=== PATIENT | female | born 1960 | race Caucasian/White ===

== ENCOUNTER 2019-11-15 08:23 | Outpatient (CLI) | payer OTHER, SELFPAY ==
[2019-11-15 12:55] LABS: Anion Gap 7.6 mmol/L (3-11); BUN 12 mg/dL (7-18); CO2 28.4 mmol/L (21.0-32.0); CREATININE 0.67 mg/dL (0.55-1.02); Calcium 9.5 mg/dL (8.5-10.1); Calculated LDL 178 mg/dL; Chloride 106 mmol/L (98-107); Cholesterol 272 mg/dL (<200); Glucose 87 mg/dL (74-106); HDL Cholesterol 79 mg/dL (40-60); Potassium 5.5 mmol/L (3.5-5.1); Sodium 142 mmol/L (136-145); Triglyceride 76 mg/dL (<150)
== END 2019-11-15 08:43 ==
PROVIDERS: PCP Family Medicine; Visit Provider Family Medicine
DX: Z00.00 Encounter for general adult medical examination without abnormal findings (principal); Z13.220 Encounter for screening for lipoid disorders; Z13.228 Encounter for screening for other metabolic disorders
CPT/HCPCS: 36415; 80048; 80061

== ENCOUNTER 2020-10-11 03:26 | Outpatient (CLI) | payer OTHER, SELFPAY ==
--- NOTE | 2020-10-11 08:00 | DI.MAMMO_ITS ---
EXAM: MG MAMMO SCREENING CLINICAL HISTORY: screening,z12,39. TECHNIQUE: Bilateral full field digital CC and MLO mammographic images were obtained with 3D tomosyn thesis and utilizing computer aided detection (CAD). COMPARISON: Prior mammograms dating back to 2015, the most recent being January 2018. FINDINGS: There are no new dominant masses nor malignant appearing microcalcification groups. There is no new architectural distortion nor skin thickening-retraction. IMPRESSION: No radiographic evidence of malignancy. BI-RADS Category 1 - Negative Breast Density - Category B - Scattered areas of fibroglandular density Breast density Category C or D implies that the patient has dense breast tissue. Dense breast tissue can make it harder to find cancer on a mammogram. Dense breast tissue is also associated with an incr eased risk of breast cancer. This information about the result of the mammogram report was provided to the patient to raise their awareness. Use this report when you speak with the patient about their risks for breast cancer, which includes their family history. At that time, you may recommend additional screening tests (Ultrasoun d or MRI) as these tests may add significant information. A negative radiographic report should not delay biopsy if a dominant or clinically suspicious mass is present. Up to ten percent of cancers are not identified on mammography. A negative report may reinforce clinical impression. Adenosis and dense breasts may obscure an underlying neoplasm. False positive reports average 6 to 10%. Patient will receive a letter notifying them of these results.
== END 2020-10-11 03:46 ==
PROVIDERS: PCP Nurse Practitioner Family; Visit Provider Nurse Practitioner Family
DX: Z12.31 Encounter for screening mammogram for malignant neoplasm of breast (principal)
CPT/HCPCS: 77063; 77067

== ENCOUNTER 2020-10-28 14:20 | Emergency (ER) | payer OTHER, SELFPAY ==
[2020-10-28] VITALS (11 sets, daily range): BP systolic 118–147; BP diastolic 54–68; PULSE 62–74; RESP 13–22; TEMP 36.7; O2SAT 98–100
--- NOTE | 2020-10-28 14:15 | RT.EKG_ITS ---
APPROVED REPORT Exam: Resting ECG Patient Location: E HR:67 bpm ECG Measurements Heart Rate 67 AXIS IL 183 P -4 QRSd 82 QRS 38 QT 392 T -6 QTc 416 Conclusion Sinus rhythm POOR quality, repeated
--- NOTE | 2020-10-28 14:30 | RT.EKG_ITS ---
APPROVED REPORT Exam: Resting ECG Patient Location: E HR:69 bpm ECG Measurements Heart Rate 69 AXIS LA 185 P -12 QRSd 79 QRS 40 QT 385 T 1 QTc 414 Conclusion Sinus rhythm Atrial premature complex...SV complex w/ short R-R interval
--- NOTE | 2020-10-28 14:45 | DI.RAD_ITS ---
EXAM: XR CHEST 2V PA LATERAL CLINICAL HISTORY: transient palpitations. TECHNIQUE: 2D digital imaging was performed. COMPARISON: No exams were available for comparison FINDINGS: Heart size is normal. The mediastinum is not widened. Lungs are clear. No infiltrates nor pleural effusions. IMPRESSION: No acute pulmonary findings. DATA REPOSITORY: RADIATION DOSE DELIVERED:
--- NOTE | 2020-10-28 14:55 | W.ED.GENAD ---
Discharge Plan Disposition Patient Disposition: HOME Condition: Improving Discharge Details Clinical Impression: Heart palpitations Primary Care Provider: Elizabeth Santacruz ED Provider: Fortino Narayan Home Meds and New Rx's Prescriptions: Continued acetaminophen [Tylenol] 325 MG tablet 650 mg PO BID PRNRF: 0 folic acid 20 MG capsule 1 cap PO DAILY RF: 0 cyanocobalamin (vitamin B-12) [Vitamin B-12] 1,000 MCG tablet 1 tab PO DAILY RF: 0 calcium carbonate-vitamin D3 [Caltrate with Vitamin D3] 1 EACH tablet 1 tab PO DAILY RF: 0 omega-3 fatty acids-fish oil 1 EACH capsule 1 cap PO DAILY Qty: 90 RF: 0 Lactobacillus acidophilus 1 EACH tablet 2 tab PO DAILY RF: 0 Discharge Instructions Instructions: Heart Palpitations (ED) Additional Instructions: Please return the heart monitor to respiratory therapy as discussed with them. Return to the ER if you develop chest pain, difficulty breathing, or any other acute concerns. Please stay liberally hydrated with small, frequent sips of fluids. Minimize caffeine use and no energy drink use. Medical Decision Making This is a 60-year-old female who presents from home with the abrupt onset, at rest, of palpitations that she describes as a pounding in her chest lasting approximately 15 minutes. She felt lightheaded but did not have a syncopal event. Mild right anterior chest discomfort that resolved with the resolution of her tachydysrhythmia. She arrives to the ER afebrile, pulse 70, pressure 138/62 oxygenating normally on room air. Differential diagnosis includes benign palpitations, PACs, SVT, A. fib, dehydration, or electrolyte changes. Patient placed on a cardiac monitor technician, IV access established and she is referred for laboratory testing, EKG and chest x-ray. Laboratories reveal a white count of 10, hematocrit 39, platelets 354. Sodium 141, potassium 3.7, chloride 104, bicarb 28, BUN 15, creatinine 0.9. LFTs unremarkable, troponin negative, repeated and also negative. Chest x-ray without acute findings. Patient observed without evidence of abnormality on monitor. She was fitted for a 48-hour Holter monitor. We have asked care management to arrange a follow-up in clinic for recheck. I discussed with her that I feel SVT was the most likely source of her palpitations, but there is no clear etiology following today's work-up. She understands indications to return to the ER and we did discuss vagal maneuvers to be performed at home if she does have recurrent sense of tachydysrhythmia. HPI General Mode of arrival: ambulatory. Date/Time Provider Initiated Documentation: 10/28/20 14:29. Limitations to Documentation: no limitations. Information obtained by: patient. History of Present Illness 60 year old F presents to the emergency department with the chief complaint of Palpitations for 15 minutes at home, described as moderate, Quality is described as dull and constant, and is localized to the chest. Patient reports no radiation. Patient started experiencing this minute(s) and it has been now resolved. No relieving factors improve symptom(s), No exacerbating factors reported . Patient notes other ([place] lightheaded. No syncope. Mild right anterior chest discomfort that is now resolved.); denies shortness of breath and syncope. Patient did receive the following treatments prior to arrival, none Related Data Home Medications Medication Instructions Recorded Confirmed acetaminophen [Tylenol] 650 mg PO BID PRN tab-cap 01/11/13 10/28/20 calcium carbonate-vitamin D3 1 tab PO DAILY 01/11/13 10/28/20 [Caltrate with Vitamin D3] cyanocobalamin (vitamin B-12) 1 tab PO DAILY 01/11/13 10/28/20 [Vitamin B-12] folic acid 1 cap PO DAILY 01/11/13 10/28/20 omega-3 fatty acids-fish oil 1 cap PO DAILY #90 01/13/13 10/28/20 Lactobacillus acidophilus 2 tab PO DAILY 12/11/16 10/28/20 Allergies Allergy/AdvReac Type Severity Reaction Status Date / Time No Known Allergies Allergy Unverified 10/28/20 14:38 General Stated Complaint: Palpitatns KIRA: 2 Review of Systems Narrative: No recent illness. She has otherwise been well. No excess caffeine use, no alcohol use, no energy drinks. No supplements. 8 systems reviewed and otherwise negative. [facility] Medical History Cigarette smoker Generalized anxiety disorder Hyperlipidemia Major depressive disorder PTSD (post-traumatic stress disorder) Surgical History History of total right knee replacement (TKR) Status post endovenous radiofrequency ablation of saphenous vein Family History Mother , age 83 Epilepsy Father Diabetes Hypertension Heart disease Brother Hypertension Brother No problems noted. Son No problems noted. Son No problems noted. Daughter No problems noted. Maternal Grandfather , age 80 Emphysema lung Maternal Grandmother No problems noted. Paternal Grandfather , age 80 No problems noted. Paternal Grandmother , age 90 No problems noted. 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 Pets and animals: Yes Pets and animals: dog(s) and horse(s) Sexually active: Yes Do you think of yourself as: straight/heterosexual Current gender identity: female What is your relationship status?: How often do you talk on the phone with friends or family?: twice per week How often do you get together with friends or relatives?: twice per week How often do you attend yazidi or spiritism services?: 1-3 times per year Do you belong to any clubs or organized social groups?: decline to answer Panel score (0-1 are the most socially isolated patients): 2 What type of physical activity do you participate in: walking and other Details: horseback riding Duration: 15-30 minutes/day Frequency: daily Jenna/Scientology: [employer]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 Pleasant, well groomed, interactive. HEAD: Normocephalic, atraumatic ENT: Mucous membranes moist, oropharynx unremarkable, External ear exam unremarkable EYES: PERRL, EOMI NECK: Full ROM, no SHAI, no menigismus CHEST/RESP: Nontender, clear to auscultation bilateral, no wheeze/rhonchi/rales CARDIOVASCULAR: RRR, no murmur, rub denzel. 2+ Rad pulse bilateral ABDOMEN: Soft, nontender, no mass. +Bowel sounds EXT: Full ROM, no edema, no rash Neuro: Grossly normal neurologic exam, conversant, interactive. Psych: Speech fluent, thoughts congruent, affect normal Course Vital Signs Vital signs: Vital Signs Temperature 36.7 C 10/28/20 14:28 Pulse 70 10/28/20 14:28 Respiratory Rate 21 10/28/20 14:28 Blood Pressure 138/62 10/28/20 14:28 Pulse Oximetry 100 10/28/20 14:28 Temperature 36.7 C 10/28/20 14:28 Temperature Source Temporal Artery Scan 10/28/20 14:28 Pulse 70 10/28/20 14:28 Respiratory Rate 21 10/28/20 14:28 Respiratory Effort Non-Labored 10/28/20 14:36 Blood Pressure 138/62 10/28/20 14:28 Blood Pressure Position Supine 10/28/20 14:28 Pulse Oximetry 100 10/28/20 14:28 Oxygen Delivery Method Room Air 10/28/20 14:28 Oxygen Flow Rate 0 10/28/20 14:28 Pain Level 2 10/28/20 14:28
[2020-10-28 15:04] LABS: Abs Immature Grans 0.02 10^3/uL (0.0-0.06); Absolute Basophil Count 0.04 10^3/uL (0.0-0.2); Absolute Monocyte Count 0.87 10^3/uL (0.1-0.8); Absolute Neutrophil Count 6.05 10^3/uL (1.2-6.7); Basophils % 0.4; Eosinophils % 1.9; HCT 39.5 % (36.0-46.0); HGB 13.2 g/dL (11.2-15.7); Immature Grans % 0.2; Lymphocytes % 30.2; MCH 31.1 pg (27.0-33.0); MCHC 33.4 % (32.0-36.0); MCV 93.2 fL (80-95); MPV 9.8 fL (8.0-11.0); Monocytes % 8.5; Neutrophils % 58.8; Nucleated RBC 0 %; Platelet Count 354 10^3/uL (130-400); RBC 4.24 10^6/uL (3.93-5.22); RDW 12.2 % (11.7-14.6); WBC 10.28 10^3/uL (4.4-10.8)
--- NOTE | 2020-10-28 15:25 | DI.VRAD_ITS ---
PROCEDURE INFORMATION: Exam: XR Chest, 2 Views Exam date and time: 10/28/2020 2:55 PM Age: 60 years old Clinical indication: Other: Palpitations TECHNIQUE: Imaging protocol: XR of the chest Views: 2 views. COMPARISON: No relevant prior studies available. FINDINGS: Lungs: Unremarkable. No consolidation. Pleural space: Unremarkable. No pleural effusion. No pneumothorax. Heart/Mediastinum: Unremarkable. No cardiomegaly. Bones/joints: There is no acute fracture. IMPRESSION: No acute findings. Dictated and Authenticated by: Tiago Reyna MD. Ordering:JOLENE Freitas MD
[2020-10-28 15:26] LABS: ALT 21 U/L (14-59); AST 15 U/L (15-37); Albumin 3.8 g/dL (3.4-5.0); Alkaline Phosphatase 76 U/L (46-116); Anion Gap 8.3 mmol/L (3-11); BUN 15 mg/dL (7-18); Bilirubin, Total 0.3 mg/dL (0.2-1.0); CO2 28.7 mmol/L (21.0-32.0); CREATININE 0.98 mg/dL (0.55-1.02); Chloride 104 mmol/L (98-107); Estimated GFR 57.89 (mL/min/1.73m2); Glucose 114 mg/dL (74-106); Magnesium 1.9 mg/dL (1.8-2.4); Potassium 3.7 mmol/L (3.5-5.1); Sodium 141 mmol/L (136-145); TSH 2.02 uIU/mL (0.36-3.74); Total Protein 7.4 g/dL (6.4-8.2); Troponin I < 0.05 ng/mL (<0.06)
--- NOTE | 2020-10-28 17:06 | NUR.NOTE ---
Nursing Note: Faxed to PCP referral for follow up. Susie Gloria
[2020-10-28 17:13] LABS: Troponin I < 0.05 ng/mL (<0.06)
== END 2020-10-28 17:20 | disposition home or self-care (01) ==
PROVIDERS: Emergency Provider Emergency Medicine; PCP Nurse Practitioner Family
DX: R00.2 Palpitations (principal); R42 Dizziness and giddiness
CPT/HCPCS: 80053; 93005; 99284; 71046; 83735; 84443; 84484; 85025; 93010; 93225

== ENCOUNTER 2020-10-28 15:54 | Outpatient (RCR) | payer OTHER, SELFPAY ==
--- NOTE | 2020-10-28 16:00 | HOLTER_ITS ---
APPROVED REPORT Exam Type: HOLTER MONITOR APPLICATION Reason for Test: PALPITATIONS Patient Location: O Conclusion This is a 24-hour monitor ordered for indication of palpitations. ???The patient was in normal sinus rhythm for the majority of the recording with an average heart of 69 bpm. ???There were 9 episodes of supraventricular tachycardia with the longest lasting 9 beats. There wer e rare PACs. ???There were 0 episodes of ventricular tachycardia and rare PVCs. ???There were no episodes of atrial fibrillation, no pauses greater than 3 seconds and no evidence of high degree heart block. ???1 patient diary event was associated with sinus rhythm and a PAC.
== END 2020-11-01 23:59 | disposition home or self-care (01) ==
LOC: RT 15:54
PROVIDERS: PCP Nurse Practitioner Family; Referring Provider Emergency Medicine; Visit Provider Nurse Practitioner Family
DX: R00.2 Palpitations (principal); I47.1 Supraventricular tachycardia
CPT/HCPCS: 93225; 93226

== ENCOUNTER 2021-01-01 01:53 | Outpatient (CLI) | payer BC, SELFPAY ==
--- NOTE | 2021-01-01 08:59 | DI.US_ITS ---
APPROVED REPORT EXAM: Comprehensive 2D, Doppler, and color-flow Echocardiogram Patient Location: Out-Patient Technology Sales Consultant: Vaelrie Bond RDCS (AE) Indications: SVT Other Information Study Quality: Adequate Conclusion Left Ventricle : The left ventricle is normal size. The left ventricular systolic function is normal. The left ventricular ejection fraction is within the normal range. There is normal left ventricular wall thickness. There is normal LV segmental wall motion. The left ventricular diastolic function is normal. LVEF is 60%. Right Ventricle : The right ventricle is normal size. The right ventricular systolic function is norm al. The RVSP is 26.0 mmHg. Atria : The left atrium size is normal. The right atrium size is normal. Valves: There are no hemodynamically significant valvular lesions. Great Vessels : The aortic root is normal in size. The ascending aorta is normal in size. Aortic arch is normal in caliber. IVC is normal in size and collapses >50% with inspiration. Please see remainder of study for further details. Wall motion Left Ventricle The left ventricle is normal size. The left ventricular systolic function is normal. The left ventric ular ejection fraction is within the normal range. There is normal left ventricular wall thickness. T here is normal LV segmental wall motion. The left ventricular diastolic function is normal. There is no ventricular septal defect visualized. LVEF is 60%. Right Ventricle The right ventricle is normal size. The right ventricular systolic function is normal. The RVSP is 26 .0 mmHg. Atria The left atrium size is normal. The right atrium size is normal. The interatrial septum is intact wit h no evidence for an atrial septal defect. Aortic Valve The aortic valve is normal in structure. Aortic valve is trileaflet. There is no aortic valvular sten osis. No aortic regurgitation is present. Mitral Valve Mild mitral annular calcification. No evidence of mitral valve stenosis. Trace mitral regurgitation. Tricuspid Valve The tricuspid valve is normal in structure. There is no tricuspid valve stenosis. Trace tricuspid reg urgitation. Pulmonic Valve The pulmonary valve is normal in structure. There is no pulmonic valvular stenosis. There is no pulmo kimberly valvular regurgitation. Great Vessels The aortic root is normal in size. The ascending aorta is normal in size. Aortic arch is normal in ca liber. IVC is normal in size and collapses >50% with inspiration. Pericardium There is no pericardial effusion. 2D Dimensions IVSD d PLAX 0.82 cm F: 0.6-1.0 LV Vol A2C d MOD 106.1 mL LVPW d PLAX 0.85 cm F: 0.6 - 1.0 LV Vol A4C d MOD 104.0 mL LVID d PLAX 4.27 cm F: 3.8 - 5.2 LA vol/ BSA A2C s A-L 29.8 mL/m2 LVDs 2.75 cm F: 2.2 - 3.5 LA vol/ BSA A4C s A-L 23.8 mL/m2 Ao Root d 2.84 cm F: 2.7 - 3.3 LA Vol/ BSA Biplane s A-L 27.7 mL/m2 RA Area A4C 11.89 cm2 LA Area A4C s MOD 15.65 cm2 RA Vol/ BSA A4C s A-L 17.4 mL/m2 LA Area A2C s MOD 16.81 cm2 Ao Asc Diam d 3.00 cm F: 2.3 - 3.1 LV EF A4C MOD 59.6 % LV EF Teichholz 63.9 % LV EF A2C MOD 59.4 % LVEF (Segura's) 60.07 % F: 54 - 74 LV EF Biplane MOD 60.1 % LV Volume 84.50 mL F: 46 - 106 SV 64.18 mL LV Volume Index 49.12 mL/m2 F: 29 - 61 SV Index 37.34 mL/m2 LV Vol Biplane MOD 106.8 mL FS 34.45 % M-Mode TAPSE 2.58 cm (M/F) >1.7 LV Diastology MV E' medial 0.067 (>0.07 m/s) E/A Ratio 1.2 LV E/e MED 13.00 (<14) MV E Vmax 0.88 (0.4-1.3 m/s) MV E' lateral 0.148 (>0.1 m/s) MV A Vmax 0.75 (0.4-1.3 m/s) LV E/e LAT 5.90 (<14) MV E/A Ratio 1.12 MV E/E' medial 13.04 MV E/E' lateral 5.93 Aortic Valve LVOT Area 3.22 cm2 AoV Area Vmax 2.34 cm2 LVOT Vmax 1.12 m/s AoV Area/ BSA (Vmax) 1.36 cm2/m2 LVOT Mean Sahil. 0.67 m/s VISHAL Mean Sahil. 2.17 cm2 LVOT Peak Grad 5.0 mmHg VISHAL Mean Sahil. Index 1.26 cm2/m2 LVOT Mean Grad 2.2 mmHg LVOT VTI 0.263 m LVOT Diam s 2.00 cm AoV Vmax 1.54 m/s Velocity Ratio 0.72 AoV Mean Sahil. 1.00 m/s AoV Peak Grad 9.5 mmHg LVOT SV 84.84 mL AoV Mean Grad 4.6 mmHg AoV VTI 0.365 m AoV Area VTI 2.32 cm2 AoV Area/ BSA (VTI) 1.35 cm/m2 Mitral Valve MV DT 236 (160-240 msec) MV PHT 68 msec MV Area PHT 3.21 cm2 MV VTI 0.345 m MV Area VTI 2.46 (4.0-6.0 cm2) Pulmonary Valve PV Vmax 0.91 (0.5-1.5 m/s) RVOT Peak Gr. 1.37 mmHg PV Peak Grad 3.3 mmHg RVOT Mean Gr. 0.70 mmHg PV Mean Grad 1.8 mmHg RVOT VTI 0.153 m PV VTI 0.229 m RVOT Vmax 0.59 m/s Tricuspid Valve TR Peak Grad 22.9 mmHg TR Vmax 2.40 m/s RA Pressure 3.00 mmHg RVSP (TR) 26.0 mmHg
== END 2021-01-01 02:13 ==
PROVIDERS: PCP Nurse Practitioner Family; Visit Provider Internal Medicine Cardiovascular Disease
DX: I47.1 Supraventricular tachycardia (principal)
CPT/HCPCS: 93306

== ENCOUNTER 2021-05-30 09:44 | Outpatient (CLI) | payer BC, SELFPAY ==
--- NOTE | 2021-05-30 08:00 | DI.RAD_ITS ---
Exam(s) XR KNEE RT 4V AP,LAT,HEENA,PAT EXAM: XR KNEE RT 4V AP,LAT,HEENA,PAT CLINICAL HISTORY: eval R TKA. TECHNIQUE: 2D digital imaging was performed. COMPARISON: CR RIGHT KNEE LIMITED 1 OR 2 VIEW from 08/15/2014 FINDINGS: Appearance of the components of the prosthesis are unchanged from 2014. No abnormalities seen around the femoral component. Linear lucency subjacent to the tibial component appears unchanged. No radi ographic evidence of osteomyelitis IMPRESSION: DATA REPOSITORY: RADIATION DOSE DELIVERED:
== END 2021-05-30 09:45 | disposition home or self-care (01) ==
LOC: DIORS 10:00
PROVIDERS: PCP Nurse Practitioner Family; Referring Provider Nurse Practitioner Family; Visit Provider Student in an Organized Health Care Education/Training Program
DX: Z96.651 Presence of right artificial knee joint
CPT/HCPCS: 73564

== ENCOUNTER 2021-09-09 14:03 | Outpatient (REF) | payer BC, SELFPAY ==
--- NOTE | 2021-09-09 11:40 | PAPFT_PTH ---
PATIENT: Mellissa Bautista LOC: [facility] U#:[id number] AGE/SX: 61/F ROOM: RE09/09/[address]: KHANH Sullivan : 1960 BED: DIS: 09/09/2021 SPEC #: [id number] RECD: 09/09/21 18:19 STATUS: DEYVI REVerónica #: [id number] ZE: 09/09/21 11:[address]: Elizabeth Santacruz DEPT: [facility] Cytology RECD BY: Marcelina Bains Tissues: 1 - CX/ENDOCX FOR PAP SMEARS Procedures: PAP THIN PREP/UVM Screening HPV DNA PROBE Comments: [id number]
== END 2021-09-09 14:04 | disposition home or self-care (01) ==
LOC: LBN 14:03
PROVIDERS: PCP Nurse Practitioner Family; Visit Provider Nurse Practitioner Family
DX: Z12.4 Encounter for screening for malignant neoplasm of cervix (principal); Z11.51 Encounter for screening for human papillomavirus (HPV)
CPT/HCPCS: 88142; 87624

== ENCOUNTER 2021-09-18 02:04 | Outpatient (CLI) | payer BC, SELFPAY ==
[2021-09-18 13:13] LABS: Anion Gap 8.5 mmol/L (3-11); BUN 13 mg/dL (7-18); CO2 28.5 mmol/L (21.0-32.0); CREATININE 0.7 mg/dL (0.55-1.02); Calcium 9.3 mg/dL (8.5-10.1); Calculated LDL 172 mg/dL (<100); Chloride 104 mmol/L (98-107); Cholesterol 269 mg/dL (<200); Glucose 92 mg/dL (74-106); HDL Cholesterol 78 mg/dL (40-60); Potassium 4.3 mmol/L (3.5-5.1); Sodium 141 mmol/L (136-145); Triglyceride 95 mg/dL (<150)
[2021-09-18 13:36] LABS: Hemoglobin A1C 5.6 % (<5.7)
== END 2021-09-18 02:05 | disposition home or self-care (01) ==
LOC: LOS 02:04
PROVIDERS: PCP Nurse Practitioner Family; Visit Provider Nurse Practitioner Family
DX: E78.5 Hyperlipidemia, unspecified (principal)
CPT/HCPCS: 36415; 80048; 80061; 83036

== ENCOUNTER 2021-12-30 15:23 | Outpatient (CLI) | payer BC, SELFPAY ==
--- NOTE | 2021-12-30 14:45 | DI.RAD_ITS ---
Exam(s) XR FOOT RT COMPLETE EXAM: XR FOOT RT COMPLETE CLINICAL HISTORY: right hindfoot pain and pes planus. TECHNIQUE: 2D digital imaging was performed. COMPARISON: No exams were available for comparison FINDINGS: BONES: No acute fracture is present. No bony destructive lesion is seen. Small plantar calcaneal spu r. Pes planus. Degenerative changes talar navicular joint. Adjacent ossicle. Minimal degenerative changes elsewhere. JOINTS: No dislocation present. SOFT TISSUE: Normal. IMPRESSION: Pes planus. Advanced degenerative changes talonavicular joint. DATA REPOSITORY: RADIATION DOSE DELIVERED:
--- NOTE | 2021-12-30 14:45 | DI.RAD_ITS ---
Exam(s) XR ANKLE RT 2V EXAM: XR ANKLE RT 2V CLINICAL HISTORY: Right hindfoot pain and pes planus. TECHNIQUE: 2D digital imaging was performed. COMPARISON: MR MRI R LOWER JOINT WO CONT from 04/25/2016 FINDINGS: BONES: No acute fracture is present. No bony destructive lesion is seen. Small plantar calcaneal sp ur. JOINTS: The ankle mortise is normally aligned. No significant joint space narrowing. No talar dome defect. Degenerative changes talonavicular joint. SOFT TISSUE: Normal. IMPRESSION: Degenerative changes talonavicular joint. DATA REPOSITORY: RADIATION DOSE DELIVERED:
== END 2021-12-30 15:24 | disposition home or self-care (01) ==
LOC: DIORS 15:23
PROVIDERS: PCP Nurse Practitioner Family; Referring Provider Nurse Practitioner Family; Visit Provider Student in an Organized Health Care Education/Training Program
DX: M21.41 Flat foot [pes planus] (acquired), right foot (principal); M79.671 Pain in right foot; M77.31 Calcaneal spur, right foot; M19.071 Primary osteoarthritis, right ankle and foot
CPT/HCPCS: 73600; 73630

== ENCOUNTER 2022-05-30 09:03 | Outpatient (CLI) | payer BC, SELFPAY ==
--- NOTE | 2022-05-30 08:00 | DI.RAD_ITS ---
Exam(s) XR KNEE RT 2V AP,LAT EXAM: XR KNEE RT 2V AP,LAT CLINICAL HISTORY: eval R TKA pain. TECHNIQUE: 2D digital imaging was performed. Two images were obtained. AP and lateral views were ob tained. COMPARISON: CR XR KNEE RT 4V AP,LAT,HEENA,PAT from 05/30/2021 FINDINGS: BONES: There are stable post operative changes present. No fracture or dislocation. JOINTS: The orthopedic hardware is in good position. There is a small joint effusion. SOFT TISSUE: Normal. IMPRESSION: Stable postoperative changes. DATA REPOSITORY: RADIATION DOSE DELIVERED:
== END 2022-05-30 09:04 | disposition home or self-care (01) ==
LOC: DIORS 09:04
PROVIDERS: PCP Nurse Practitioner Family; Referring Provider Nurse Practitioner Family; Visit Provider Student in an Organized Health Care Education/Training Program
DX: T84.84XA Pain due to internal orthopedic prosthetic devices, implants and grafts, initial encounter (principal); Z96.651 Presence of right artificial knee joint
CPT/HCPCS: 73560

== ENCOUNTER 2022-09-15 04:22 | Outpatient (CLI) | payer BC, SELFPAY ==
[2022-09-15 12:20] LABS: Abs Immature Grans 0.02 10^3/uL (0.0-0.06); Absolute Basophil Count 0.06 10^3/uL (0.0-0.2); Absolute Eosinophil Count 0.12 10^3/uL (0.0-0.7); Absolute Lymphocyte Count 2.58 10^3/uL (1.2-3.4); Absolute Monocyte Count 0.53 10^3/uL (0.1-0.8); Absolute Neutrophil Count 5.73 10^3/uL (1.2-6.7); Basophils % 0.7; Eosinophils % 1.3; HCT 38.1 % (36.0-46.0); HGB 12.6 g/dL (11.2-15.7); Immature Grans % 0.2; Lymphocytes % 28.5; MCH 31.3 pg (27.0-33.0); MCHC 33.1 % (32.0-36.0); MCV 95 fL (80-95); MPV 9.8 fL (8.0-11.0); Monocytes % 5.9; Neutrophils % 63.4; Platelet Count 348 10^3/uL (130-400); RBC 4.03 10^6/uL (3.93-5.22); RDW 12.5 % (11.7-14.6); RDW-SD 43.8 fL; WBC 9.04 10^3/uL (4.4-10.8)
[2022-09-15 12:52] LABS: Anion Gap 7.9 mmol/L (3-11); BUN 10 mg/dL (7-18); CO2 28.1 mmol/L (21.0-32.0); CREATININE 0.8 mg/dL (0.55-1.02); Calcium 9.4 mg/dL (8.5-10.1); Calculated LDL 178 mg/dL (<100); Chloride 104 mmol/L (98-107); Cholesterol 277 mg/dL (<200); Estimated GFR 83.26 (mL/min/1.73m2); Glucose 102 mg/dL (74-106); HDL Cholesterol 74 mg/dL (40-60); Potassium 3.5 mmol/L (3.5-5.1); Sodium 140 mmol/L (136-145); TSH (W/Ref FT4) 1.24 uIU/mL (0.36-3.74); Triglyceride 127 mg/dL (<150)
== END 2022-09-15 04:23 | disposition home or self-care (01) ==
LOC: LOS 04:22
PROVIDERS: PCP Nurse Practitioner Family; Visit Provider Nurse Practitioner Family
DX: E78.5 Hyperlipidemia, unspecified (principal); F33.9 Major depressive disorder, recurrent, unspecified
CPT/HCPCS: 36415; 80048; 80061; 84443; 85025

== ENCOUNTER 2022-11-20 10:26 | Emergency (ER) | payer BC, SELFPAY ==
[2022-11-20 10:28] VITALS: BP 131/67; PULSE 89; RESP 17; TEMP 36.8; O2SAT 100
--- NOTE | 2022-11-20 10:30 | DI.RAD_ITS ---
Exam(s) XR FOOT LT COMPLETE EXAM: XR FOOT LT COMPLETE CLINICAL HISTORY: Fall Injury, R/O Fracture pain base of 4th toe. TECHNIQUE: 2D digital imaging was performed. COMPARISON: CR XR FOOT RT COMPLETE from 12/30/2021 FINDINGS: 3 views There is no oblique mildly displaced fracture in the mid-distal aspect of 5th metatarsal. Fracture l ine extends to the level of the neck of the 5th metatarsal but does not appear to violate the metatar sophalangeal joint. Minimal displacement. No radiopaque foreign body. No other fractures identifie d. Lisfranc joint appears unremarkable. Inferior calcaneal spur noted. IMPRESSION: Oblique fracture 5th metatarsal. Minimal displacement. DATA REPOSITORY: RADIATION DOSE DELIVERED:
--- NOTE | 2022-11-20 10:38 | ED.GENADUL_ITS ---
Discharge Plan Disposition Patient Disposition: Home Condition: Stable Discharge Details Clinical Impression: Fracture of 5th metatarsal Primary Care Provider: Elizabeth Santacruz ED Provider: Shirley Hooker Home Meds and New Rx's Prescriptions: No Action triamcinolone acetonide 0.025 % ointment 1 applic topical BID Qty: 15 0RF Digestive Advantage Prob Gummy 250 million cell tablet,chewable See Rx Instructions .ROUTE .COMPLEX Rx Instructions: Take 1 tab PO daily turmeric root extract 500 mg capsule 1,000 mg PO DAILY lorazepam 0.5 mg tablet 0.5 mg PO BID PRN (Reason: anxiety) Qty: 30 0RF escitalopram oxalate 10 mg tablet 10 mg PO DAILY Qty: 30 1RF Rx Instructions: Take 1/2 tab (5 mg) qHS x 2 weeks, then take 1 tab (10 mg), qHS acetaminophen [Tylenol] 325 MG tablet 650 mg PO BID PRN folic acid 20 MG capsule 1 cap PO DAILY cyanocobalamin (vitamin B-12) [Vitamin B-12] 1,000 MCG tablet 1 tab PO DAILY calcium carbonate-vitamin D3 [Caltrate with Vitamin D3] 1 EACH tablet 1 tab PO DAILY omega-3 fatty acids-fish oil 1 EACH capsule 1 cap PO DAILY Qty: 90 trazodone 50 mg tablet 50 mg PO QHS Qty: 90 3RF Discharge Instructions Instructions: Foot Fracture in Adults (ED) Additional Instructions: Wear the walking boot as tolerated. Toe-touch weightbearing advance as tolerated. Keep elevated when lying or sitting down. Use crutches and stay off the foot as much as possible until follow-up with orthopedics. You have an oblique minimally displaced left fifth metatarsal fracture. Please follow-up with orthopedics in the next 1-2 weeks, you may call for an appointment. Please take Tylenol with food every 4-6 hours as needed for pain and swelling. Rest, ice, compression, elevation. Stand Alone Forms: Work Release Referrals: Michele Douglas MD [ [facility] STAFF PHYSICIAN] - 5 days Medical Decision Making 62-year-old female with a past medical history of hyperlipidemia, SVT, depressive disorder arthritis who is a smoker presents to the ER with a chief complaint of left foot pain and and ecchymosis after a inversion type injury on Thursday. Patient reports that she was walking out on the ice and rolled her left ankle fell to the ground was able to ambulate after the injury. She reports continued pain. X-ray left foot ordered. Offered analgesia patient declined at this time. Discussed x-ray results with patient, there is a 5th metatarsal oblique minimally displaced fracture. Placed on these placed in a walking boot did offer crutches she reports she does have crutches at home and declined these at this time. Feel this is appropriate since patient has been walking on her foot thus far for the last 5 days. I did instruct her to stay off it is much as possible elevate when sitting or lying down and to follow-up with orthopedics, she was placed on the care management follow-up list. This text was generated using [employer] system, please disregard any oddities of phrase or misspellings. Imaging Data Radiologic Study: Imaging: X-Ray Radiologist's impression: EXAM:? XR FOOT LT COMPLETE CLINICAL HISTORY: ? Fall Injury, R/O Fracture pain base of 4th toe. ? TECHNIQUE:? 2D digital imaging was performed. COMPARISON:? CR XR FOOT RT COMPLETE from 12/30/2021 FINDINGS: 3 views There is no oblique mildly displaced fracture in the mid-distal aspect of 5th metatarsal.? Fracture line extends to the level of the neck of the 5th metatarsal but does not appear to violate the metatarsophalangeal joint.? Minimal displacement.? No radiopaque foreign body.? No other fractures identified.? Lisfranc joint appears unremarkable. Inferior calcaneal spur noted. IMPRESSION: Oblique fracture 5th metatarsal.? Minimal displacement. HPI General Mode of arrival: ambulatory . Date/Time Provider Initiated Documentation: 11/20/22 10:26 . Limitations to Documentation: no limitations . Information obtained by: patient, RN notes reviewed and old records reviewed . HPI Narrative: 62-year-old female with a past medical history of hyperlipidemia, SVT, depressive disorder arthritis who is a smoker presents to the ER with a chief complaint of left foot pain and and ecchymosis after a inversion type injury on Thursday. Patient reports that she was walking out on the ice and rolled her left ankle fell to the ground was able to ambulate after the injury. She reports continued pain. She has been elevating it and soaking in Epson salt she does endorse some Tylenol last night. No knee pain no head or neck pain denies any other associated symptoms or injuries. Related Data Home Medications Medication Instructions Recorded Confirmed acetaminophen 325 mg tablet 650 mg PO BID PRN 01/11/13 11/20/22 (Tylenol) calcium carbonate 600 mg-vitamin 1 tab PO DAILY 01/11/13 11/20/22 D3 20 mcg (800 unit) tablet (Caltrate with Vitamin D3) cyanocobalamin (vitamin B-12) 1 tab PO DAILY 01/11/13 11/20/22 1,000 mcg tablet (Vitamin B-12) folic acid 20 mg capsule 1 cap PO DAILY 01/11/13 11/20/22 omega-3 fatty acids-fish oil 300 1 cap PO DAILY ##90 01/13/13 11/20/22 mg-1,000 mg capsule Bacillus coagulans 250 million See Rx Instructions .Route .COMPLEX 05/30/21 11/20/22 cell chewable tablet (Digestive Advantage Probiotic Gummy) turmeric root extract 500 mg 1,000 mg PO DAILY 11/11/21 11/20/22 capsule triamcinolone acetonide 0.025 % 1 applic topical BID #15 grams 05/19/22 11/20/22 topical ointment lorazepam 0.5 mg tablet 0.5 mg PO BID PRN anxiety #30 tabs 09/24/22 11/20/22 trazodone 50 mg tablet 50 mg PO QHS insomnia #90 tabs 10/06/22 11/20/22 escitalopram oxalate 10 mg tablet 10 mg PO DAILY #30 tabs 10/30/22 11/20/22 Previous Rx's Medication Instructions Recorded triamcinolone acetonide 0.025 % 1 applic topical BID #15 grams 05/19/22 topical ointment lorazepam 0.5 mg tablet 0.5 mg PO BID PRN anxiety #30 tabs 09/24/22 trazodone 50 mg tablet 50 mg PO QHS insomnia #90 tabs 10/06/22 escitalopram oxalate 10 mg tablet 10 mg PO DAILY #30 tabs 10/30/22 Allergies Allergy/AdvReac Type Severity Reaction Status Date / Time No Known Allergies Allergy Verified 11/20/22 10:32 General Stated Complaint: Orthopedic KIRA: 4 Review of Systems All systems reviewed & are unremarkable except as noted in HPI and below ENT Ears, Nose, Mouth, and Throat: Denies neck pain Musculoskeletal Musculoskeletal: Reports as per HPI, Denies back pain, Reports arthralgias (Left foot pain with ecchymosis) and Denies neck pain PFSH All Active Problems Fracture of 5th metatarsal (Acute) Major depressive disorder, recurrent (Acute) Generalized anxiety disorder (Acute) Arthritis of right subtalar joint (Acute) Osteoarthritis of talonavicular joint (Acute) Pes planus of right foot (Acute) Painful total knee replacement, right (Acute) SVT (supraventricular tachycardia) (Chronic) Hyperlipidemia (Chronic) Cigarette smoker (Chronic) Medical History Major depressive disorder PTSD (post-traumatic stress disorder) Surgical History History of total right knee replacement (TKR) Status post endovenous radiofrequency ablation of saphenous vein Status post right foot surgery For flat feet Family History Mother , age 83 Epilepsy Father Diabetes Hypertension Heart disease Brother Hypertension Brother No problems noted. Son No problems noted. Son No problems noted. Daughter No problems noted. Maternal Grandfather , age 80 Emphysema lung Maternal Grandmother No problems noted. Paternal Grandfather , age 80 No problems noted. Paternal Grandmother , age 90 No problems noted. 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 Pets and animals: Yes Pets and animals: dog(s) and horse(s) Sexually active: Yes Do you think of yourself as: straight/heterosexual Current gender identity: female What is your relationship status?: How often do you talk on the phone with friends or family?: twice per week How often do you get together with friends or relatives?: twice per week How often do you attend adventist or mandaeism services?: 1-3 times per year Do you belong to any clubs or organized social groups?: decline to answer Panel score (0-1 are the most socially isolated patients): 2 What type of physical activity do you participate in: walking and other Details: horseback riding Duration: 15-30 minutes/day Frequency: daily Jenna/Jehovah'S Witness: Gnosticist Special jenna needs: No Seatbelt use: always Helmet use: Yes Helmet use: always Drive intox or ride w/intox clark driver: No Water heater temp set <120 deg: Yes Working smoke detector in home: Yes Fire extinguisher in home: Yes Carbon monox detector in home: Yes Firearms in home: Yes Firearms unloaded and locked: Yes Do you feel safe at home: Yes Do you feel safe in your relationship?: Yes Victim of physical abuse: No Victim of emotional abuse: No Victim of sexual abuse: No Exam Extrem Left lower extremity: knee Details: normal to inspection, lower leg Details: n ormal to inspection, ankle Details: normal to inspection; no tenderness, no swelling, edema and no warmth and foot Details: tenderness Location: of the dorsal foot Location: distally, of the lateral foot Location: in the mid-section and at the base of the 5th metatarsal and of the base of the 5th metatarsal and ecchymosis Ankle/foot/toe images: 1. Ecchymosis 2. Tenderness with palpation Course Vital Signs Vital signs: Vital Signs Temperature 36.8 C 11/20/22 10:28 Pulse 89 11/20/22 10:28 Respiratory Rate 17 11/20/22 10:28 Blood Pressure 131/67 11/20/22 10:28 Pulse Oximetry 100 11/20/22 10:28 Temperature 36.8 C 11/20/22 10:28 Temperature Source Temporal Artery Scan 11/20/22 10:28 Pulse 89 11/20/22 10:28 Respiratory Rate 17 11/20/22 10:28 Respiratory Effort 11/20/22 10:31 Blood Pressure 131/67 11/20/22 10:28 Blood Pressure Position Sitting 11/20/22 10:28 Pulse Oximetry 100 11/20/22 10:28 Oxygen Delivery Method Room Air 11/20/22 10:28 Oxygen Flow Rate 0 11/20/22 10:28 Pain Level 5 11/20/22 10:28
== END 2022-11-20 11:42 | disposition home or self-care (01) ==
PROVIDERS: Emergency Provider Registered Nurse Emergency; PCP Nurse Practitioner Family
DX: S92.352A Displaced fracture of fifth metatarsal bone, left foot, initial encounter for closed fracture (principal); W00.0XXA Fall on same level due to ice and snow, initial encounter; X50.1XXA Overexertion from prolonged static or awkward postures, initial encounter; Y93.01 Activity, walking, marching and hiking
CPT/HCPCS: 99283; 73630; 99282

== ENCOUNTER 2022-12-05 09:12 | Outpatient (CLI) | payer BC, SELFPAY ==
--- NOTE | 2022-12-05 08:45 | DI.RAD_ITS ---
Exam(s) XR FOOT LT COMPLETE EXAM: XR FOOT LT COMPLETE CLINICAL HISTORY: left fifith MT fracture. TECHNIQUE: 2D digital imaging was performed. COMPARISON: CR XR FOOT LT COMPLETE from 11/20/2022 FINDINGS: 3 views The oblique fracture in the 5th metatarsal appears unchanged. No obvious callus formation but no fur ther displacement evident. There are no new additional fractures evident. No osseous lesions. IMPRESSION: Unchanged radiographic appearance of the oblique fracture of the 5th metatarsal when compared to 11/02. DATA REPOSITORY: RADIATION DOSE DELIVERED:
== END 2022-12-05 09:13 | disposition home or self-care (01) ==
LOC: DIORS 09:12
PROVIDERS: PCP Nurse Practitioner Family; Referring Provider Nurse Practitioner Family; Visit Provider Physician Assistant
DX: S92.352A Displaced fracture of fifth metatarsal bone, left foot, initial encounter for closed fracture (principal); X58.XXXA Exposure to other specified factors, initial encounter
CPT/HCPCS: 73630

== ENCOUNTER 2022-12-26 09:01 | Outpatient (CLI) | payer BC, SELFPAY ==
--- NOTE | 2022-12-26 08:45 | DI.RAD_ITS ---
Exam(s) XR FOOT LT COMPLETE EXAM: XR FOOT LT COMPLETE INDICATION: f/u 5TH metatarsal fx. COMPARISON: CR XR FOOT LT COMPLETE from 12/05/2022 TECHNIQUE: 2D digital imaging was performed. Two views. FINDINGS: Has been no change in the alignment of the 5th metatarsal fracture which shows mildly increased heali ng when compared to the previous exam. No new abnormalities. DATA REPOSITORY: RADIATION DOSE DELIVERED:
== END 2022-12-26 09:02 | disposition home or self-care (01) ==
LOC: DIORS 09:01
PROVIDERS: PCP Nurse Practitioner Family; Referring Provider Nurse Practitioner Family; Visit Provider Student in an Organized Health Care Education/Training Program
DX: S92.352D Displaced fracture of fifth metatarsal bone, left foot, subsequent encounter for fracture with routine healing (principal); X58.XXXD Exposure to other specified factors, subsequent encounter
CPT/HCPCS: 73630

== ENCOUNTER 2022-12-29 07:22 | Emergency (ER) | payer BC, SELFPAY ==
[2022-12-29 07:26] VITALS: BP 148/71; PULSE 77; RESP 18; TEMP 36.6; O2SAT 98
[2022-12-29 07:38] VITALS: RESP 16
--- NOTE | 2022-12-29 07:40 | ED.GENADUL_ITS ---
Discharge Plan Discharge Details Chief Complaint: GenMedical Clinical Impression: Acid reflux Primary Care Provider: Elizabeth Santacruz ED Provider: Igor Balderas Home Meds and New Rx's Prescriptions: New famotidine 40 mg tablet 40 mg PO DAILY Qty: 14 0RF Continued triamcinolone acetonide 0.025 % ointment 1 applic topical BID Qty: 15 0RF Digestive Advantage Prob Gummy 250 million cell tablet,chewable See Rx Instructions .ROUTE .COMPLEX Rx Instructions: Take 1 tab PO daily turmeric root extract 500 mg capsule 1,000 mg PO DAILY escitalopram oxalate 5 mg tablet See Rx Instructions PO .at bedtime Qty: 45 1RF Rx Instructions: 1.5 tabs (7.5 mg) orally AT BEDTIME; lorazepam 0.5 mg tablet 0.5 mg PO BID PRN (Reason: anxiety) Qty: 30 0RF acetaminophen [Tylenol] 325 MG tablet 650 mg PO BID PRN folic acid 20 MG capsule 1 cap PO DAILY cyanocobalamin (vitamin B-12) [Vitamin B-12] 1,000 MCG tablet 1 tab PO DAILY calcium carbonate-vitamin D3 [Caltrate with Vitamin D3] 1 EACH tablet 1 tab PO DAILY omega-3 fatty acids-fish oil 1 EACH capsule 1 cap PO DAILY Qty: 90 trazodone 50 mg tablet 50 mg PO QHS Qty: 90 3RF Discontinued omeprazole 40 mg capsule,delayed release(DR/EC) 40 mg PO DAILY Qty: 90 0RF Discharge Instructions Instructions: GERD (Gastroesophageal Reflux Disease) (ED) Additional Instructions: Please read all of the information that accompanies these instructions. You were seen in the emergency department for your acid reflux. Your CAT scan showed no acute abnormalities in your stomach. Your EKG and blood work showed no sign of heart attack. Please schedule an appointment with your primary care provider later this week. Please return to the emergency department if you develop vomiting that does not stop or any fevers. Medical Decision Making This is a quite well-appearing normothermic and not tachycardic 62-year-old female with symptoms of decreased appetite and acid reflux. Will assess TSH level to make sure patient is not markedly hypothyroid. Given her age and her sex will obtain a troponin and ECG to ensure that she is not having ACS with manifestation of acid reflux. Given loss of appetite we will obtain COVID an tigen test. She has soft nontender abdomen so my suspicion for any acute intra- abdominal process was exceedingly low. Specifically she had no right lower quadrant tenderness nor any fevers to suggest appendicitis. She had been having some diarrhea but given no fevers and no left lower quadrant tenderness I am not suspicious diverticulitis. No rash to stomach to suggest zoster. Not recently or having any left upper quadrant tenderness to suggest splenic arterial aneurysm. Given that she is on outpatient omeprazole will attempt treatment with famotidine and complete a p.o. challenge. We will also use ondansetron for nausea. She does not appear acutely dehydrated so anticipate that if her labs are reassuring she will be appropriate for an empiric trial of outpatient expectant management with PMD follow-up. Of note she has never had a colonoscopy however malignancy would more likely cause obstructive symptoms rather than symptoms of acid reflux. Another, more likely possibility, is that the patient could be having symptoms of reflux secondary to H. pylori and may benefit from urea breath test assessment with her primary care provider. She is nonalcoholic to suggest gastritis. Given that she is tolerating p.o. without vomiting my suspicion for esophageal food bolus is exceedingly low. Given no sharp localizing lower abdominal tenderness I was not concerned for ovarian torsion. No dysuria nor frequency to suggest UTI. No right upper quadrant tenderness on fevers to suggest acute cholecystitis. No pain out of proportion to suggest necrotizing soft tissue infection. 8:50 AM I met with the patient and her again. Her labs had returned and are reassuring with no anemia or leukocytosis. She had no IGOR no acute electrolyte abnormalities. Her troponin was negative based on the duration of her symptoms will defer repeat troponin testing at this point time. Given her intermittent cramping upper abdominal pain and the duration of her symptoms will obtain a CT scan with IV contrast to assess for any obvious hiatal hernia or masses. No history of recent retching to suggest esophageal rupture. 9:50 AM Patient was feeling slightly improved following famotidine. Given subjective relief well sent prescription for famotidine to pharmacy in place of omeprazole. I have given patient return indications including any nausea or vomiting that does not stop or abdominal pain or chest pain. Will await final CT read. I also advised outpatient PMD follow-up later this week to discuss next steps. COVID antigen test reportedly negative. 10:15 AM Patient had a reassuring CT scan in the ED. She was able to tolerate p.o. She will follow-up with her primary care provider later this week. We discussed management of symptoms of reflux with Tums as needed and Mylanta. Patient will trial short course of famotidine. HPI General Date/Time Provider Initiated Documentation: 12/29/22 07:39 . HPI Narrative: This is a 62-year-old female in the emergency department with her in the setting of cramping in her abdomen associate with nausea acid reflux and fatigue. Patient reports she was recently weaned off of trazodone. She says that she has had anxiety for the past approximately 5 months since a foot fusion and since she put her father in a detention facility. For the past 2 to 3 months she has had decreased appetite. She occasionally gets some cramping lower abdominal pain. It is worse with movement. She has never had any surgeries to her abdomen in the past nor any colonoscopy in the past. She endorses symptoms of acid reflux and lower chest discomfort for which her primary care provider initiated treatment with omeprazole. She takes esitalopram. She was previously on trazodone. She is not having any shortness of breath. She reportedly recently had a reassuring thyroid test. She has had no recent fevers. She occasionally has diarrhea. No recent antibiotics. She does not feel suicidal. She was able to tolerate a loaded baked potato last night. She has had no vaginal bleeding. She denies dysuria and frequency. Related Data Home Medications Medication Instructions Recorded Confirmed acetaminophen 325 mg tablet 650 mg PO BID PRN 01/11/13 12/29/22 (Tylenol) calcium carbonate 600 mg-vitamin 1 tab PO DAILY 01/11/13 12/29/22 D3 20 mcg (800 unit) tablet (Caltrate with Vitamin D3) cyanocobalamin (vitamin B-12) 1 tab PO DAILY 01/11/13 12/29/22 1,000 mcg tablet (Vitamin B-12) folic acid 20 mg capsule 1 cap PO DAILY 01/11/13 12/29/22 omega-3 fatty acids-fish oil 300 1 cap PO DAILY ##90 01/13/13 12/29/22 mg-1,000 mg capsule Bacillus coagulans 250 million See Rx Instructions .Route .COMPLEX 05/30/21 12/29/22 cell chewable tablet (Digestive Advantage Probiotic Gummy) turmeric root extract 500 mg 1,000 mg PO DAILY 11/11/21 12/29/22 capsule triamcinolone acetonide 0.025 % 1 applic topical BID #15 grams 05/19/22 12/29/22 topical ointment trazodone 50 mg tablet 50 mg PO QHS insomnia #90 tabs 10/06/22 12/29/22 escitalopram oxalate 5 mg tablet See Rx Instructions PO .at bedtime 11/27/22 12/29/22 #45 tabs lorazepam 0.5 mg tablet 0.5 mg PO BID PRN anxiety #30 tabs 11/27/22 12/29/22 famotidine 40 mg tablet 40 mg PO DAILY #14 tabs 12/29/22 Previous Rx's Medication Instructions Recorded triamcinolone acetonide 0.025 % 1 applic topical BID #15 grams 05/19/22 topical ointment trazodone 50 mg tablet 50 mg PO QHS insomnia #90 tabs 10/06/22 escitalopram oxalate 5 mg tablet See Rx Instructions PO .at bedtime 11/27/22 #45 tabs lorazepam 0.5 mg tablet 0.5 mg PO BID PRN anxiety #30 tabs 11/27/22 famotidine 40 mg tablet 40 mg PO DAILY #14 tabs 12/29/22 Allergies Allergy/AdvReac Type Severity Reaction Status Date / Time No Known Allergies Allergy Verified 12/29/22 07:30 General Stated Complaint: GenMedical KIRA: 3 PFSH All Active Problems Acid reflux (Chronic) Fracture of fifth metatarsal bone of left foot (Acute ~11/2022) Major depressive disorder, recurrent (Acute) Generalized anxiety disorder (Acute) Arthritis of right subtalar joint (Acute) GERD (gastroesophageal reflux disease) (Chronic) Osteoarthritis of talonavicular joint (Acute) Pes planus of right foot (Acute) Painful total knee replacement, right (Acute) SVT (supraventricular tachycardia) (Chronic) Hyperlipidemia (Chronic) Cigarette smoker (Chronic) Medical History Major depressive disorder PTSD (post-traumatic stress disorder) Surgical History History of total right knee replacement (TKR) Status post endovenous radiofrequency ablation of saphenous vein Status post right foot surgery For flat feet Family History Mother , age 83 Epilepsy Father Diabetes Hypertension Heart disease Brother Hypertension Brother No problems noted. Son No problems noted. Son No problems noted. Daughter No problems noted. Maternal Grandfather , age 80 Emphysema lung Maternal Grandmother No problems noted. Paternal Grandfather , age 80 No problems noted. Paternal Grandmother , age 90 No problems noted. 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 Pets and animals: Yes Pets and animals: dog(s) and horse(s) Sexually active: Yes Do you think of yourself as: straight/heterosexual Current gender identity: female What is your relationship status?: How often do you talk on the phone with friends or family?: twice per week How often do you get together with friends or relatives?: twice per week How often do you attend pentecostalism or mormonism services?: 1-3 times per year Do you belong to any clubs or organized social groups?: decline to answer Panel score (0-1 are the most socially isolated patients): 2 What type of physical activity do you participate in: walking and other Details: horseback riding Duration: 15-30 minutes/day Frequency: daily Jenna/Druze: Yarsanism Special jenna needs: No Seatbelt use: always Helmet use: Yes Helmet use: always Drive intox or ride w/intox superintendent drivers: No Water heater temp set <120 deg: Yes Working smoke detector in home: Yes Fire extinguisher in home: Yes Carbon monox detector in home: Yes Firearms in home: Yes Firearms unloaded and locked: Yes Do you feel safe at home: Yes Do you feel safe in your relationship?: Yes Victim of physical abuse: No Victim of emotional abuse: No Victim of sexual abuse: No Exam Narrative Exam Narrative: General: Well-appearing in no acute distress speaking in complete sentences. Head: Normocephalic, atraumatic Ear, nose, mouth, throat: Grossly normal inspection. Normal voice, handling secretions normally. Neck: Trachea midline. Cardiovascular: Well-perfused distal extremities.Regular rate and rhythm Respiratory: Nonlabored respiration. Clear lungs bilaterally. Gastrointestinal: Nondistended abdomen. Minimal epigastric tenderness. No rebound or guarding. Musculoskeletal: No edema. Moving all 4 extremities spontaneously. Skin: Normal for age and race, grossly normal temperature and turgor. No acute rash. Neurologic: Alert and appropriate, no apparent acute deficits. Psychiatric: Mood and manner are appropriate. Grooming and personal hygiene are appropriate. Course Vital Signs Vital signs: Vital Signs Temperature 36.6 C 12/29/22 07:26 Pulse 77 12/29/22 07:26 Respiratory Rate 18 12/29/22 07:26 Blood Pressure 148/71 H 12/29/22 07:26 Pulse Oximetry 98 12/29/22 07:26 Temperature 36.6 C 12/29/22 07:26 Temperature Source Oral 12/29/22 07:26 Pulse 77 12/29/22 07:26 Respiratory Rate 18 12/29/22 07:26 Respiratory Effort Normal, Non-Labored 12/29/22 07:32 Blood Pressure 148/71 H 12/29/22 07:26 Blood Pressure Position Sitting 12/29/22 07:26 Pulse Oximetry 98 12/29/22 07:26 Oxygen Delivery Method Room Air 12/29/22 07:26 Oxygen Flow Rate 0 12/29/22 07:26
--- NOTE | 2022-12-29 07:45 | RT.EKG_ITS ---
APPROVED REPORT Exam: Resting ECG Reason for Exam: Acid reflux Patient Location: E HR:68 bpm ECG Measurements Heart Rate 68 AXIS NE 191 P 71 QRSd 71 QRS 25 QT 373 T 71 QTc 396 Conclusion Sinus rhythm...normal P axis, V-rate 60- 99 Narrow complex normal sinus rhythm at a rate of 68. Normal axis. Intervals within normal limits. T wave flattening in aVL and V2 new compared to prior. Prior dated 2019. Also new compared to prior as upright T waves in lead III.
[2022-12-29 08:17] LABS: HCT 38.8 % (36.0-46.0); HGB 12.9 g/dL (11.2-15.7); MCH 30.9 pg (27.0-33.0); MCHC 33.2 % (32.0-36.0); MCV 93 fL (80-95); MPV 9.2 fL (8.0-11.0); Platelet Count 358 10^3/uL (130-400); RBC 4.18 10^6/uL (3.93-5.22); RDW 12.3 % (11.7-14.6); RDW-SD 42.3 fL; WBC 10.23 10^3/uL (4.4-10.8)
[2022-12-29] MEDS: Normal Saline 500 ML IV (08:30)
[2022-12-29] MEDS: Ondansetron 4 MG/2 ML VIAL IVP (08:31)
[2022-12-29] MEDS: Famotidine 20 MG/2 ML VIAL 40 MG IVP (08:31)
[2022-12-29 08:36] LABS: Troponin I < 50 ng/L (<or=60)
[2022-12-29 08:42] LABS: ALT 16 U/L (14-59); AST 11 U/L (15-37); Albumin 3.6 g/dL (3.4-5.0); Alkaline Phosphatase 76 U/L (46-116); Anion Gap 7.9 mmol/L (3-11); BUN 10 mg/dL (7-18); Bilirubin, Total 0.5 mg/dL (0.2-1.0); CO2 29.1 mmol/L (21.0-32.0); CREATININE 0.7 mg/dL (0.55-1.02); Calcium 9.4 mg/dL (8.5-10.1); Chloride 105 mmol/L (98-107); Estimated GFR 97.72 (mL/min/1.73m2); Glucose 114 mg/dL (74-106); Lipase 33 U/L (16-77); Magnesium 1.8 mg/dL (1.8-2.4); Potassium 4.1 mmol/L (3.5-5.1); Sodium 142 mmol/L (136-145); TSH (W/Ref FT4) 1.15 uIU/mL (0.36-3.74); Total Protein 7.1 g/dL (6.4-8.2)
--- NOTE | 2022-12-29 08:45 | DI.CT_ITS ---
Exam(s) CT ABDOMEN PELVIS W EXAM: CT ABDOMEN PELVIS W CLINICAL HISTORY: Intermittent cramping upper abdominal pain TECHNIQUE: Imaging Protocol: Axial computed tomography images with coronal and sagittal reformatted images were created and reviewed CONTRAST MATERIAL: Intravenous: Omnipaque 350 Contrast volume:100 mL Oral: No COMPARISON: No exams were available for comparison FINDINGS: ABDOMEN: Lung Bases: Normal where visualized. Liver: Normal density. There are few tiny hypodensities scattered in the liver. They are too small f or further characterization but likely reflect small cysts. No suspicious hepatic masses. Portal, Superior Mesenteric, and Splenic Veins: Unremarkable. Gallbladder and Biliary Tract: No radiodense calculus or dilation. Pancreas: Normal density, no abnormal calcifications or inflammatory process. Spleen: Normal. Adrenals: No masses seen. Kidneys: Normal size, contour and axis. No radiodense stones or obstructive uropathy. There is a simp le cyst in the inferior pole of the right kidney. No follow-up is recommended. Abdominal Aorta: Abdominal portion non-dilated. Atherosclerosis is present. Bowel: There is diverticulosis of the colon, but no evidence of acute diverticulitis. There is no ev idence of bowel obstruction. No bowel wall thickening is seen. Appendix is unremarkable. Peritoneal Cavity: No ascites, collection or mesenteric inflammatory response. No free air. Lymph Nodes: Within normal limits. Bones: Within normal limits for the patient's age. Soft Tissues: Unremarkable. PELVIS: Bladder: Symmetric distention, no gross wall thickening. Reproductive Organs: Unremarkable as visualized. Lymph Nodes: Within normal limits. Bones: Within normal limits for the patient's age. IMPRESSION: 1. No acute abdominal or pelvic process. 2. Findings were discussed with the emergency department at 10:08 a.m. on 12/29/2022. RADIATION DOSE DELIVERED: 737.6mGy.cm Total DLP DATA REPOSITORY: All CT scans at this facility are submitted to the National Radiology Data Registry (NRDR) Dose Index Registry (DIR) with the [employer] ([employer]). RADIATION OPTIMIZATION: All CT scans at this facility use at least one of these dose optimization te chniques: automated exposure control; mA and/or kV adjustment per patient size (includes targeted exa ms where dose is matched to clinical indication); or iterative reconstruction.
[2022-12-29] MEDS: Normal Saline 50 ML (08:48)
[2022-12-29] MEDS: Normal Saline - Diluent 50 ML VIAL IJ (09:32)
[2022-12-29] MEDS: Omnipaque 350 MG/ML 500 ML BTL-Imaging package IJ (09:32)
[2022-12-29 10:16] VITALS: BP 128/61; PULSE 66; RESP 18; O2SAT 100
== END 2022-12-29 10:28 ==
PROVIDERS: Emergency Provider Emergency Medicine; PCP Nurse Practitioner Family
DX: K21.9 Gastro-esophageal reflux disease without esophagitis (principal); Z20.822 Contact with and (suspected) exposure to COVID-19
CPT/HCPCS: 36415; 80053; 83690; 85027; 93005; 96361; 96374; 96375; 99285; 74177; 83735; 84443; 84484; 93010; 99284; J2405

== ENCOUNTER 2023-04-22 02:53 | Outpatient (CLI) | payer BC, SELFPAY ==
[2023-04-22 12:48] LABS: Anion Gap 8.5 mmol/L (3-11); BUN 16 mg/dL (7-18); CO2 27.5 mmol/L (21.0-32.0); CREATININE 0.8 mg/dL (0.55-1.02); Calcium 9.2 mg/dL (8.5-10.1); Calculated LDL 180 mg/dL (<100); Chloride 106 mmol/L (98-107); Cholesterol 273 mg/dL (<200); Estimated GFR 82.74 (mL/min/1.73m2); Glucose 90 mg/dL (74-106); HDL Cholesterol 78 mg/dL (40-60); Potassium 4.2 mmol/L (3.5-5.1); Sodium 142 mmol/L (136-145); Triglyceride 75 mg/dL (<150)
== END 2023-04-22 02:54 | disposition home or self-care (01) ==
LOC: LOS 02:53
PROVIDERS: PCP Nurse Practitioner Family; Visit Provider Nurse Practitioner Family
DX: E78.5 Hyperlipidemia, unspecified (principal); F41.1 Generalized anxiety disorder; K21.9 Gastro-esophageal reflux disease without esophagitis; F33.9 Major depressive disorder, recurrent, unspecified
CPT/HCPCS: 36415; 80048; 80061

== ENCOUNTER 2024-04-20 08:47 | Outpatient (CLI) | payer BC, SELFPAY ==
[2024-04-20 12:50] LABS: ALT 22 U/L (14-59); AST 15 U/L (15-37); Albumin 3.7 g/dL (3.4-5.0); Alkaline Phosphatase 60 U/L (46-116); Anion Gap 4.8 mmol/L (3-11); BUN 10 mg/dL (7-18); Bilirubin, Total 0.3 mg/dL (0.2-1.0); CO2 31.2 mmol/L (21.0-32.0); CREATININE 0.8 mg/dL (0.55-1.02); Calcium 9.2 mg/dL (8.5-10.1); Calculated LDL 63 mg/dL (<100); Chloride 106 mmol/L (98-107); Cholesterol 163 mg/dL (<200); Estimated GFR 82.23 (mL/min/1.73m2); Glucose 94 mg/dL (74-106); HDL Cholesterol 83 mg/dL (40-60); Sodium 142 mmol/L (136-145); Triglyceride 85 mg/dL (<150)
[2024-04-21 09:11] LABS: HBs Antibody, Quant <3.1 mIU/mL (See Note); Hep B Surface Ab Negative (See Note); Hepatitis B Core Antibody Negative (Negative); Hepatitis B Surface Antigen Negative (Negative)
[2024-04-21 09:24] LABS: Hepatitis C Ab w Rflx HCV PCR Negative (Negative)
[2024-04-21 09:45] LABS: HIV-1/2 Ag & Ab Screen Negative (Negative)
== END 2024-04-20 08:48 | disposition home or self-care (01) ==
LOC: LOS 08:47
PROVIDERS: PCP Nurse Practitioner Family; Referring Provider Nurse Practitioner Family; Visit Provider Nurse Practitioner Family
DX: Z11.59 Encounter for screening for other viral diseases (principal); Z00.00 Encounter for general adult medical examination without abnormal findings; E78.5 Hyperlipidemia, unspecified; Z11.4 Encounter for screening for human immunodeficiency virus [HIV]
CPT/HCPCS: 36415; 80053; 80061; 86704; 86706; 86803; 87340; 87389

== ENCOUNTER → 2024-04-26 02:00 | Outpatient (CLI) | payer BC, SELFPAY ==
--- NOTE | 2024-04-26 15:13 | DI.MAMMO_ITS ---
Exam(s) MAMMO SCREENING EXAM: MAMMO SCREENING CLINICAL HISTORY: screening, Z12.39 TECHNIQUE: Mammograms were interpreted according to the usual protocol including computer analysis w [employer] CAD system, tomosynthesis and C-view imaging. COMPARISON: 2015 through 2019 FINDINGS: The breasts are composed of scattered fibroglandular densities, Breast Density category B. No suspicious masses or suspicious microcalcifications are seen. No skin thickening or abnormal axillary lymph nodes are seen. There has been no significant change from prior exams. IMPRESSION: BI-RADS Category 1, Negative mammogram Yearly screening mammography is recommended. Breast Density - Category B, scattered fibroglandular densities. A negative radiographic report should not delay biopsy if a dominant or clinically suspicious mass is present. Up to ten percent of cancers are not identified on mammography. A negative report may reinforce clinical impression. Adenosis and dense breasts may obscure an underlying neoplasm. False positive reports average 6 to 10%. Patient will receive a letter notifying them of these results.
== END ==
PROVIDERS: PCP Nurse Practitioner Family; Visit Provider Nurse Practitioner Family
DX: Z12.31 Encounter for screening mammogram for malignant neoplasm of breast (principal)
CPT/HCPCS: 77063; 77067

== ENCOUNTER 2025-04-25 09:09 | Outpatient (CLI) | payer BC, SELFPAY ==
[2025-04-25 12:28] LABS: ALT 28 U/L (14-59); AST 15 U/L (15-37); Albumin 3.8 g/dL (3.4-5.0); Alkaline Phosphatase 75 U/L (46-116); Anion Gap 6.5 mmol/L (3-11); BUN 19 mg/dL (7-18); Bilirubin, Total 0.4 mg/dL (0.2-1.0); CO2 28.5 mmol/L (21.0-32.0); CREATININE 0.9 mg/dL (0.55-1.02); Calcium 9.1 mg/dL (8.5-10.1); Calculated LDL 89 mg/dL (<100); Chloride 103 mmol/L (98-107); Cholesterol 202 mg/dL (<200); Estimated GFR 70.95 (mL/min/1.73m2); Glucose 86 mg/dL (74-106); HDL Cholesterol 94 mg/dL (>or=50); Potassium 3.8 mmol/L (3.5-5.1); Sodium 138 mmol/L (136-145); Total Protein 7.3 g/dL (6.4-8.2); Triglyceride 98 mg/dL (<150)
== END 2025-04-25 09:10 | disposition home or self-care (01) ==
PROVIDERS: PCP Nurse Practitioner Family; Referring Provider Nurse Practitioner Family; Visit Provider Nurse Practitioner Family
DX: E78.5 Hyperlipidemia, unspecified (principal)
CPT/HCPCS: 36415; 80053; 80061

== ENCOUNTER 2025-06-08 03:21 | Outpatient (CLI) | payer BC, SELFPAY ==
--- NOTE | 2025-06-08 08:15 | DI.CTLCSR_ITS ---
Exam(s) CT CHEST LUNG CANCER SCREEN EXAM: CT CHEST LUNG CANCER SCREEN CLINICAL HISTORY: Screening for lung cancer,former tobacco use,z87.891. TECHNIQUE: Imaging Protocol: Low Dose Technique CONTRAST MATERIAL: None COMPARISON: CR,XR XR CHEST 2V PA LATERAL from 10/28/[address] ABDOMEN PELVIS W from 12/29/2022 FINDINGS: CHEST: LUNGS: There are no significant focal findings in the right lung.. In the left lung there is a small calcified granuloma in the upper lobe. There are mild increased markings in the inferior lingular segment which appear atelectatic. No significant focal findings in the trachea and mainstem bronchi. There is no significant bronchiectasis. There are no pleural effusions. MEDIASTINUM: There is no obvious hilar nor mediastinal adenopathy. CARDIAC: Heart size is normal. There is no pericardial effusion.Caliber of the thoracic aorta is within normal limits. OTHER: No adrenal masses. No splenomegaly. OSSEOUS: No significant osseous lesions.No fractures.. IMPRESSION: 1. Mild benign-appearing findings in the lower left lung. No ominous pulmonary nodules, confluent infiltrates, nor pleural effusions. 2. No obvious intrathoracic adenopathy 3. Lung RADS Cat 2 - Benign Appearance / Behavior: Nodules with a very low likelihood of becoming a clinically active cancer due to size or lack of growth Lung-RADS 1.0 CATEGORIES: Category 0 - Prior chest CT exam(s) being located for comparison. Category 1 - Annual screening in 12 months. No nodules or definitely benign nodules. Category 2 - Annual screening in 12 months. Benign appearance. Nodules with low likelihood of becoming active cancer. Category 3 - 6-month follow-up. Probably benign. Short-term follow-up suggested. Nodules with low likelihood of becoming active cancer. Category 4A - 3-month follow-up and CT/PET if >8 mm in size. Suspicious finding. Findings which require additional testing. Category 4B - Findings which require additional testing and tissue sampling. Category 4X - Category 3 or 4 nodules with additional features or imaging findings that increases the suspicion of malignancy. Modifier S- Potentially clinically significant findings (non lung cancer) RADIATION DOSE DELIVERED: 31.48mGy.cm Total DLP DATA REPOSITORY: All CT scans at this facility are submitted to the National Radiology Data Registry (NRDR) Dose Index Registry (DIR) with the [employer] (ACR). RADIATION OPTIMIZATION: All CT scans at this facility use at least one of these dose optimization techniques: automated exposure control; mA and/or kV adjustment per patient size (includes targeted exams where dose is matched to clinical indication); or iterative reconstruction.
--- NOTE | 2025-06-08 08:15 | DI.MAMMO_ITS ---
Exam(s) MAMMO SCREENING EXAM: MAMMO SCREENING CLINICAL HISTORY: screening,z12.39 TECHNIQUE: Bilateral full field digital CC and MLO mammographic images were obtained with 3D tomosynthesis and utilizing computer aided detection (CAD). COMPARISON: Comparison is made with prior examinations. FINDINGS: Masses/Architectural Distortion: No suspicious masses or areas of architectural distortion are present. Microcalcifications: No suspicious pleomorphic-type are seen. Skin Thickening/Nipple Retraction: None. IMPRESSION: 1. No significant interval change with no specific features of malignancy noted. 2. Unless there is more urgent need, screening mammography is recommended, as per [employer] [employer] guidelines. BI-RADS Category 1 - Negative Breast Density - Category B - There are scattered areas of fibroglandular density. Breast density Category C or D implies that the patient has dense breast tissue. Dense breast tissue can make it harder to find cancer on a mammogram. Dense breast tissue is also associated with an increased risk of breast cancer. This information about the result of the mammogram report was provided to the patient to raise their awareness. Use this report when you speak with the patient about their risks for breast cancer, which includes their family history. At that time, you may recommend additional screening tests (Ultrasound or MRI) as these tests may add significant information. A negative radiographic report should not delay biopsy if a dominant or clinically suspicious mass is present. Up to ten percent of cancers are not identified on mammography. A negative report may reinforce clinical impression. Adenosis and dense breasts may obscure an underlying neoplasm. False positive reports average 6 to 10%. Patient will receive a letter notifying them of these results.
--- NOTE | 2025-06-08 08:15 | DI.DEXA_ITS ---
Exam(s) XR DEXA BONE DENSITY W/WO ALEX EXAM: XR DEXA BONE DENSITY W/WO ALEX CLINICAL HISTORY: screening for osteoporosis postmenopausal state,z78.0 TECHNIQUE: Routine DEXA evaluation of the lumbar spine, hip, or forearm. COMPARISON: CT CT ABDOMEN PELVIS W from 12/29/2022 FINDINGS: Performed on a [employer] unit. Lateral image: No compression fracture evident. Possible bone lesion in the L2 vertebral body Lumbar Spine total T-score: -0.7 which is within normal limits. Hip total T-score:-1.9 which is osteopenia range Independent reading at the level of the femoral neck yields T-score of -1.8 which is osteopenia range Forearm total T-score: -2.6 which is osteoporosis range. IMPRESSION: Bone mineral density measures in the osteopenia range for the hip and osteoporosis range for the wrist.. Fracture risk is moderate and high, respectively. Note: Any spine fracture indicates 5x risk for subsequent spine fracture and 2x risk for subsequent hip fracture. World Health Organization criteria for BMD interpretation classify patients: Normal...... T- Score at or above -1.0 Osteopenic... T- Score between -1.0 and -2.5 Osteoporosis... T-Score at or below -2.5
== END 2025-06-08 03:41 ==
LOC: DI 03:21
PROVIDERS: PCP Nurse Practitioner Family; Visit Provider Nurse Practitioner Family
DX: Z12.31 Encounter for screening mammogram for malignant neoplasm of breast (principal); E78.5 Hyperlipidemia, unspecified; Z87.891 Personal history of nicotine dependence; Z78.0 Asymptomatic menopausal state; R91.8 Other nonspecific abnormal finding of lung field
CPT/HCPCS: 71271; 77063; 77067; 77080